=== PATIENT | male | born 1935 | race Caucasian/White ===

== ENCOUNTER 2016-06-06 09:14 | Outpatient (CLI) | payer MEDICARE ==
[2016-06-06 09:36] LABS: #Basophils 0.1 thou/uL (0.0-0.2); #Lymphocytes 1.2 thou/uL (1.20-3.40); #Monocytes 0.6 thou/uL (0.11-0.59); #Neutrophils 8.2 thou/uL (1.40-6.50); %Basophils 0.7 % (0.0-1.0); %Eosinophils 0.4 % (0.0-10.0); %Lymphocytes 11.6 % (21.0-51.0); %Monocytes 5.6 % (0.0-10.0); %Neutrophils 81.6 % (42.0-75.0); Hemoglobin 13.6 g/dL (14.0-18.0); Mean Corpuscular HGB CONC 34.4 g/dL (32.0-36.0); Mean Corpuscular Hemoglobin 30.8 pg (27.0-31.0); Mean Corpuscular Volume 89.6 fl (80.0-94.0); Mean Platelet Volume 6.2 fL (7.4-10.4); Platelet Count 216 thou/uL (130-400); RBC Distribution Width 11.6 % (11.5-14.5); Red Blood Cell (RBC) Count 4.43 mill/uL (4.70-6.10)
[2016-06-06 09:42] LABS: Hemoglobin A1c 5.9 % (4.0-6.0)
[2016-06-06 09:46] LABS: Bilirubin Negative (Negative); Blood, Urine Trace (Negative); Clarity Clear (Clear); Glucose, Urine (Dipstick) Negative (Negative); Leukocyte Negative (Negative); Nitrite Negative (Negative); Protein, Urine (Dipstick) Trace mg/dL (Neg-Trace); Urobilinogen 0.2 mg/dL (0.2-1.0)
[2016-06-06 09:49] LABS: Bacteria/HPF None Seen HPF (None Seen); RBC/HPF 0-3 HPF (0-3); Squamous Epithelial None Seen HPF (0-3); WBC/HPF 0-3 HPF (0-3)
[2016-06-06 10:09] LABS: ALT (SGPT) 20 U/L (0-55); AST (SGOT) 16 U/L (5-34); Albumin 4.3 g/dL (3.4-4.8); Alkaline Phosphatase 90 U/L (40-150); Anion Gap 14 mmol/L (10-20); BUN (Urea Nitrogen) 17 mg/dL (8.4-25.7); Bilirubin, Direct 0.2 mg/dL (0.1-0.3); Bilirubin, Total 0.6 mg/dL (0.2-1.2); Calc. Creatinine Clearance 0 mL/min (70-130); Calcium 9.2 mg/dL (7.8-10.44); Carbon Dioxide 30 mmol/L (23-31); Chloride 106 mmol/L (98-107); Cholesterol 134 mg/dL (< 200 Desired); Estimated GFR-MDRD 44; Glucose 119 mg/dL (83-110); HDL Cholesterol 44 mg/dL (>60 Neg Risk); LDL Cholesterol, Calculated 58 mg/dL; Potassium 3.9 mmol/L (3.5-5.1); Protein, Total 6.8 g/dL (5.8-8.1); Sodium 146 mmol/L (136-145); Triglycerides 158 mg/dL (Less than 150)
== END 2016-06-06 09:15 ==
LOC: MADLABBHPM 09:14
PROVIDERS: ATTEND Family Medicine
DX: E78.5 Hyperlipidemia, unspecified (principal); E11.9 Type 2 diabetes mellitus without complications; R63.4 Abnormal weight loss
CPT/HCPCS: 36415; 80048; 80061; 80076; 81001; 83036; 85025

== ENCOUNTER 2016-09-03 07:14 | Outpatient (CLI) | payer MEDICARE ==
[2016-09-03 08:02] LABS: #Basophils 0.1 thou/uL (0.0-0.2); #Eosinphils 0.1 thou/uL (0.0-0.7); #Lymphocytes 1.3 thou/uL (1.20-3.40); #Monocytes 0.6 thou/uL (0.11-0.59); #Neutrophils 8.7 thou/uL (1.40-6.50); %Basophils 0.8 % (0.0-1.0); %Eosinophils 0.7 % (0.0-10.0); %Lymphocytes 11.6 % (21.0-51.0); %Monocytes 5.9 % (0.0-10.0); Hemoglobin 12.9 g/dL (14.0-18.0); Mean Corpuscular HGB CONC 34.2 g/dL (32.0-36.0); Mean Corpuscular Volume 90.7 fl (80.0-94.0); Mean Platelet Volume 6.3 fL (7.4-10.4); Platelet Count 205 thou/uL (130-400); RBC Distribution Width 11.6 % (11.5-14.5); Red Blood Cell (RBC) Count 4.17 mill/uL (4.70-6.10); White Blood Cell (WBC) Count 10.8 thou/uL (4.8-10.8)
[2016-09-03 08:10] LABS: Hemoglobin A1c 6.6 % (4.0-6.0)
[2016-09-03 10:16] LABS: ALT (SGPT) 23 U/L (8-55); AST (SGOT) 20 U/L (5-34); Albumin 4.1 g/dL (3.4-4.8); Alkaline Phosphatase 81 U/L (40-150); Anion Gap 14 mmol/L (10-20); BUN (Urea Nitrogen) 16 mg/dL (8.4-25.7); Bilirubin, Direct 0.3 mg/dL (0.1-0.3); Bilirubin, Total 0.8 mg/dL (0.2-1.2); Calc. Creatinine Clearance 0 mL/min (70-130); Calcium 8.9 mg/dL (7.8-10.44); Carbon Dioxide 27 mmol/L (23-31); Cardiac Risk 3.6 (Less than 4.5); Chloride 107 mmol/L (98-107); Cholesterol 138 mg/dL (< 200 Desired); Estimated GFR-MDRD 42; Glucose 124 mg/dL (83-110); HDL Cholesterol 38 mg/dL (>60 Neg Risk); LDL Cholesterol, Calculated 54 mg/dL; Potassium 3.8 mmol/L (3.5-5.1); Protein, Total 6.6 g/dL (5.8-8.1); Sodium 144 mmol/L (136-145); Triglycerides 228 mg/dL (Less than 150)
== END 2016-09-03 07:15 | disposition home or self-care (01) ==
LOC: MADLABBHPM 07:14
PROVIDERS: ATTEND Family Medicine
DX: E11.9 Type 2 diabetes mellitus without complications (principal); R63.4 Abnormal weight loss
CPT/HCPCS: 36415; 80048; 80061; 80076; 83036; 84443; 85025

== ENCOUNTER 2016-09-28 17:14 | Emergency (ER) | payer MEDICARE ==
[~2016-09-28 17:14] MED LIST: Sodium Chloride Irrig Solution 250 ML BOT ONE
== END 2016-09-28 17:55 | disposition home or self-care (01) ==
LOC: MADERS 17:14
DX: S20.412A Abrasion of left back wall of thorax, initial encounter (principal); E78.5 Hyperlipidemia, unspecified; J44.9 Chronic obstructive pulmonary disease, unspecified; F17.210 Nicotine dependence, cigarettes, uncomplicated; I50.9 Heart failure, unspecified; I25.2 Old myocardial infarction; X58.XXXA Exposure to other specified factors, initial encounter
CPT/HCPCS: 99282

== ENCOUNTER 2016-11-26 13:54 | Emergency (ER) | payer MEDICARE | END 2016-11-26 14:33 | disposition home or self-care (01) | LOC: MADERS 13:54 | DX: T16.2XXA Foreign body in left ear, initial encounter (principal); J44.9 Chronic obstructive pulmonary disease, unspecified; I25.10 Atherosclerotic heart disease of native coronary artery without angina pectoris; I42.9 Cardiomyopathy, unspecified; E78.5 Hyperlipidemia, unspecified; E66.9 Obesity, unspecified; I50.9 Heart failure, unspecified; I25.2 Old myocardial infarction; Z87.891 Personal history of nicotine dependence; Z79.899 Other long term (current) drug therapy | CPT/HCPCS: 69200 ==

== ENCOUNTER 2016-12-10 09:18 | Emergency (ER) | payer MEDICARE | END 2016-12-10 10:20 | disposition home or self-care (01) | LOC: MADERS 09:18 | DX: C44.519 Basal cell carcinoma of skin of other part of trunk (principal); I25.10 Atherosclerotic heart disease of native coronary artery without angina pectoris; I25.2 Old myocardial infarction; E78.5 Hyperlipidemia, unspecified; E66.9 Obesity, unspecified; J44.9 Chronic obstructive pulmonary disease, unspecified; I50.9 Heart failure, unspecified; I42.9 Cardiomyopathy, unspecified; Z87.891 Personal history of nicotine dependence; Z79.899 Other long term (current) drug therapy | CPT/HCPCS: 99283 ==

== ENCOUNTER 2017-05-04 10:47 | Emergency (ER) | payer MEDICARE | END 2017-05-04 11:35 | disposition home or self-care (01) | LOC: MADERS 10:47 | DX: M19.042 Primary osteoarthritis, left hand (principal); M19.041 Primary osteoarthritis, right hand; R20.0 Anesthesia of skin; I25.10 Atherosclerotic heart disease of native coronary artery without angina pectoris; I50.9 Heart failure, unspecified; I25.2 Old myocardial infarction; E78.2 Mixed hyperlipidemia; E66.9 Obesity, unspecified; J44.9 Chronic obstructive pulmonary disease, unspecified; Z87.891 Personal history of nicotine dependence; Z79.899 Other long term (current) drug therapy | CPT/HCPCS: 99283 ==

== ENCOUNTER 2017-05-07 10:48 | Outpatient (CLI) | payer MEDICARE ==
--- NOTE | 2017-05-06 18:53 | RAD ---
RIGHT HAND THREE VIEWS: 05/06/17 HISTORY: Pain and stiffness in the right hand. FINDINGS/IMPRESSION: There are degenerative changes. No acute fracture, dislocation or bony destruction is identified. POS: [facility]
--- NOTE | 2017-05-06 18:56 | RAD ---
LEFT HAND THREE VIEWS: 05/06/17 HISTORY: Left hand pain and stiffness. FINDINGS/IMPRESSION: Degenerative changes are present. No fracture or dislocation or bony destruction identified. POS: [facility]
--- NOTE | 2017-05-06 19:04 | CT ---
CT BRAIN WITHOUT CONTRAST 05/06/17 HISTORY: Altered mental status. FINDINGS: there are changes of cortical atrophy and chronic small vessel ischemic disease. The ventricular size is appropriate and the basilar cisterns patent. No evidence of infarction, hemorrhage, midline shift , or abnormal extra-axial fluid collections are seen. The bony calvarium is intact. There is mild muc osal changes in the paranasal sinuses. The mastoids air cells are well aerated. IMPRESSION: No CT evidence of acute intracranial process. POS: [facility]
[2017-05-07 11:14] LABS: #Lymphocytes 0.8 thou/uL (1.20-3.40); #Monocytes 0.4 thou/uL (0.11-0.59); #Neutrophils 7.8 thou/uL (1.40-6.50); %Basophils 0.4 % (0.0-1.0); %Eosinophils 0.2 % (0.0-10.0); %Lymphocytes 9.3 % (21.0-51.0); %Neutrophils 86.1 % (42.0-75.0); Hemoglobin 13.1 g/dL (14.0-18.0); Mean Corpuscular HGB CONC 34.5 g/dL (32.0-36.0); Mean Corpuscular Hemoglobin 30.8 pg (27.0-31.0); Mean Corpuscular Volume 89.2 fl (80.0-94.0); Mean Platelet Volume 5.6 fL (7.4-10.4); Platelet Count 217 thou/uL (130-400); RBC Distribution Width 11.5 % (11.5-14.5); Red Blood Cell (RBC) Count 4.27 mill/uL (4.70-6.10)
[2017-05-07 11:54] LABS: ALT (SGPT) 20 U/L (8-55); AST (SGOT) 14 U/L (5-34); Albumin 4.2 g/dL (3.4-4.8); Alkaline Phosphatase 103 U/L (40-150); Anion Gap 18 mmol/L (10-20); BUN (Urea Nitrogen) 18 mg/dL (8.4-25.7); Bilirubin, Direct 0.3 mg/dL (0.1-0.3); Bilirubin, Total 0.8 mg/dL (0.2-1.2); Calc. Creatinine Clearance 0 mL/min (70-130); Calcium 8.8 mg/dL (7.8-10.44); Carbon Dioxide 24 mmol/L (23-31); Chloride 106 mmol/L (98-107); Cholesterol 156 mg/dl (< 200 Desired); Estimated GFR-MDRD 41; Glucose 157 mg/dL (83-110); HDL Cholesterol 39 mg/dL (>60 Neg Risk); LDL Cholesterol, Calculated 93 mg/dL; Sodium 144 mmol/L (136-145); Triglycerides 122 mg/dL (Less than 150); Uric Acid 5.7 mg/dL (3.5-7.2)
[2017-05-07 16:57] LABS: Hemoglobin A1c 7.3 % (4.0-6.0)
[2017-05-07 21:05] LABS: CRP (Inflammatory) Less than 0.50 mg/dL (= or < 0.5)
== END 2017-05-07 10:49 | disposition home or self-care (01) ==
LOC: MADLABBHPM 10:48
PROVIDERS: ATTEND Family Medicine
DX: M25.641 Stiffness of right hand, not elsewhere classified (principal); M25.642 Stiffness of left hand, not elsewhere classified; R41.3 Other amnesia; E11.22 Type 2 diabetes mellitus with diabetic chronic kidney disease; I12.9 Hypertensive chronic kidney disease with stage 1 through stage 4 chronic kidney disease, or unspecified chronic kidney disease; E78.5 Hyperlipidemia, unspecified; N18.3 Chronic kidney disease, stage 3 (moderate); M19.042 Primary osteoarthritis, left hand; M19.041 Primary osteoarthritis, right hand
CPT/HCPCS: 36415; 70450; 80048; 80061; 80076; 82607; 83036; 84443; 84550; 85025; 85652; 86140; 86430

== ENCOUNTER 2017-06-20 12:02 | Emergency (ER) | payer MEDICARE ==
[~2017-06-20 12:02] MED LIST changes: +Sodium Chloride 0.9% 500 ML BAG ONE; -Sodium Chloride Irrig Solution 250 ML BOT ONE
[2017-06-20 12:52] LABS: Band 5 % (5-11); Eosinophils 2 % (0-10); Hemoglobin 13.7 g/dL (14.0-18.0); Lymphocytes 5 % (21-51); MDiff Complete? YES; Mean Corpuscular HGB CONC 33.8 g/dL (32.0-36.0); Mean Corpuscular Hemoglobin 30.4 pg (27.0-31.0); Mean Platelet Volume 5.9 fL (7.4-10.4); Monocytes 6 % (0-10); Neutrophil 82 % (42-75); PLT Morphology Comment Appears Adequate; Platelet Count 136 thou/uL (130-400); RBC Distribution Width 11.6 % (11.5-14.5); White Blood Cell (WBC) Count 6.2 thou/uL (4.8-10.8)
[2017-06-20 12:54] LABS: ALT (SGPT) 20 U/L (8-55); AST (SGOT) 14 U/L (5-34); Albumin 3.9 g/dL (3.4-4.8); Alkaline Phosphatase 102 U/L (40-150); Anion Gap 15 mmol/L (10-20); BUN (Urea Nitrogen) 21 mg/dL (8.4-25.7); Bilirubin, Total 0.8 mg/dL (0.2-1.2); Calc. Creatinine Clearance 0 mL/min (70-130); Calcium 8.9 mg/dL (7.8-10.44); Carbon Dioxide 27 mmol/L (23-31); Chloride 102 mmol/L (98-107); Estimated GFR-MDRD 33; Globulin 2.5 g/dL (2.4-3.5); Glucose 249 mg/dL (83-110); Magnesium 2.1 mg/dL (1.6-2.6); Potassium 3.8 mmol/L (3.5-5.1); Protein, Total 6.4 g/dL (5.8-8.1); Sodium 140 mmol/L (136-145)
[2017-06-20 12:56] LABS: CKMB 0.8 ng/mL (0-6.6); Troponin I Less than 0.010 ng/mL (< 0.028)
--- NOTE | 2017-06-20 13:50 | CT ---
BRAIN CT WITHOUT IV CONTRAST: History: 81-year-old male with history of altered mental status and dizziness. Comparison: 05-06-17 FINDINGS: There is some atrophy and chronic white matter ischemic change, stable. No focal mass or midline shif t. No intra or extraaxial hemorrhage. Sinuses and mastoids are clear. IMPRESSION: Stable atrophy and chronic white matter ischemic change. No mass or bleed. POS: [facility]
[2017-06-20 14:09] LABS: Bilirubin Negative (Negative); Blood, Urine Trace (Negative); Clarity Hazy (Clear); Glucose, Urine (Dipstick) Negative (Negative); Leukocyte Negative (Negative); Nitrite Negative (Negative); Protein, Urine (Dipstick) 30 mg/dL (Neg-Trace); Specific Gravity, Urine 1.015 (1.005-1.030); Urobilinogen 0.2 mg/dL (0.2-1.0); pH, Urine 5.5 (5.0-9.0)
[2017-06-20 14:10] LABS: Bacteria/HPF 1+ HPF (None Seen); RBC/HPF 0-3 HPF (0-3); Squamous Epithelial 0-3 HPF (0-3); WBC/HPF 0-3 HPF (0-3)
== END 2017-06-20 15:05 | disposition short-term general hospital (02) ==
LOC: MADERS 12:02
DX: R42 Dizziness and giddiness (principal); I25.10 Atherosclerotic heart disease of native coronary artery without angina pectoris; I25.2 Old myocardial infarction; E78.5 Hyperlipidemia, unspecified; E78.2 Mixed hyperlipidemia; E66.9 Obesity, unspecified; J44.9 Chronic obstructive pulmonary disease, unspecified; I50.9 Heart failure, unspecified; Z87.891 Personal history of nicotine dependence; Z79.899 Other long term (current) drug therapy; Z79.82 Long term (current) use of aspirin
CPT/HCPCS: 70450; 80053; 81003; 81015; 82553; 83735; 84443; 84484; 85025; 93005; 96360